=== PATIENT | male | born 1965 | race American Indian/Alaskan Native ===

== ENCOUNTER 2017-04-24 06:00 | Emergency (ER) | payer OTHER ==
[2017-04-24 06:05] VITALS: BP 149/93
--- NOTE | 2017-04-24 08:18 | Emergency Department Report ---
HPI - General Chief Complaint: Medical Clearance Time Seen by Provider: 04/24/17 07:59 - HPI HPI: he is a 52-year-old male with a history of asthma who presents stating is out of these albuterol inhaler and is here for medication refill. Patient denies any cough, shortness of breath, chest pain, fever, nausea, vomiting, abdominal pain, headache ED Past Medical Hx - Past Medical History Hx Hypertension: No (Pt denies but BP consistently >140/90) Hx GERD: Yes Hx of Cancer: Yes (prostate) Hx Arthritis: Yes (KNEES & ankles) Hx Seizures: No Hx Kidney Stones: Yes Hx Asthma: Yes (uses inhaler everyday) Additional medical history: chronic back pain. hernia - Surgical History Past Surgical History?: Yes Additional Surgical History: Brachytherapy for prostate CA. Lithotripsy, left ureteral stent, left knee surgery, hemorrhoid surgery, cardiac catheterization 2006 - Social History Smoking Status: Never Smoker Substance Use Type: Alcohol - Medications Home Medications: Home Medications Medication Instructions Recorded Confirmed Last Taken Type Montelukast Sodium [Singulair] 10 mg PO DAILY 03/13/14 05/13/14 04/23/14 05:00 History Sildenafil Citrate [Viagra] 1 tab PO DAILY PRN 04/17/14 05/13/14 04/21/14 History Tadalafil [Cialis] 1 tab PO DAILY 04/17/14 05/13/14 04/21/14 History Ciprofloxacin HCl [Ciprofloxacin 500 mg PO Q12H #14 tab 05/13/14 Unknown Rx TAB] HYDROcodone/APAP 5-325 [[place] 1 - 2 each PO Q6HR PRN #14 tablet 05/13/14 Unknown Rx 5/325] ALBUTEROL Inhaler [ProAir HFA 2 puff IH QID PRN #1 pump 04/24/17 Unknown Rx Inhaler] ALBUTEROL NEB's [Proventil 0.083% 2.5 mg IH PRN PRN #1 nebu 04/24/17 Unknown Rx NEBS] Fluticasone/Salmeterol [Advair 1 puff IH BID #1 blst.w.dev 04/24/17 Unknown Rx Diskus 500-50 mcg] ED Review of Systems ROS: Stated complaint: MEDICAL CLEARANCE Other details as noted in HPI Constitutional: denies: chills, fever Eyes: denies: eye pain, eye discharge, vision change ENT: denies: ear pain, throat pain Respiratory: denies: cough, shortness of breath, wheezing Cardiovascular: denies: chest pain, palpitations Endocrine: no symptoms reported Gastrointestinal: denies: abdominal pain, nausea, diarrhea Genitourinary: denies: urgency, dysuria Musculoskeletal: denies: back pain, joint swelling, arthralgia Skin: denies: rash, lesions Neurological: denies: headache, weakness, paresthesias Psychiatric: denies: anxiety, depression Hematological/Lymphatic: denies: easy bleeding, easy bruising Physical Exam - Physical Exam Vital Signs: Vital Signs 04/24/17 04/24/17 06:02 06:05 Temperature 97.8 F 97.8 F Pulse Rate 107 H 107 H Respiratory 18 18 Rate Blood Pressure 149/93 149/93 O2 Sat by Pulse 95 95 Oximetry Physical Exam: GENERAL: Alert and oriented x3, no apparent distress, Normal Gait, atraumatic. NOSE: Nose symetrical, Nontender,Nares appeared normal. MOUTH:Mouth is well hydrated and without lesions. Tonsils nonerythematous or swollen, Uvula midline, Tongue not elevated. Mucous membranes are moist. Posterior pharynx clear, no exudate or lesions. Patent airways. NECK: Supple. Non edematous, No lymphadenopathy or thyromegaly. LUNGS: Symetrical with respiration, No wheezing, no rales or crackles, CTAB. HEART: S1, S2 present, regular rate and rhythm without murmur, no rubs, no gallops. Non tender to palpation SKIN: Warm and dry, No lesions, No ulceration or induration present. ED Course Vital Signs 04/24/17 04/24/17 06:02 06:05 Temperature 97.8 F 97.8 F Pulse Rate 107 H 107 H Respiratory 18 18 Rate Blood Pressure 149/93 149/93 O2 Sat by Pulse 95 95 Oximetry ED Medical Decision Making - Medical Decision Making 52-year-old male presents to medication refill ED course: Patient is in no acute respiratory distress Vital signs are normal. Patient is resting comfortably states he is in no respiratory distress The patient states he will follow-up at the [facility] for primary care. Patient states he could not get an appointment at the [facility] sooner which is why he came in here to get his medication. Critical care attestation.: If time is entered above; I have spent that time in minutes in the direct care of this critically ill patient, excluding procedure time. ED Disposition Clinical Impression: Medication refill Disposition: DC- TO HOME OR SELFCARE Is pt being admited?: No Does the pt Need Aspirin: No Condition: Stable Instructions: Asthma (ED) Additional Instructions: Follow-up with a primary care physician at the [facility] Prescriptions: ALBUTEROL Inhaler [ProAir HFA Inhaler] 2 puff IH QID PRN #1 pump PRN Reason: Shortness Of Breath ALBUTEROL NEB's [Proventil 0.083% NEBS] 2.5 mg IH PRN PRN #1 nebu PRN Reason: Wheezing Fluticasone/Salmeterol [Advair Diskus 500-50 mcg] 1 puff IH BID #1 blst.w.dev Referrals: TED EASLEY MD [Primary Care Provider] - 3-5 Days Forms: Work/School Release Form(ED) Time of Disposition: 08:29
== END 2017-04-24 08:45 | disposition home or self-care (01) ==
LOC: ED 06:00
DX: Z76.0 Encounter for issue of repeat prescription (principal); K21.9 Gastro-esophageal reflux disease without esophagitis; C61 Malignant neoplasm of prostate; M19.90 Unspecified osteoarthritis, unspecified site; J45.909 Unspecified asthma, uncomplicated; G89.29 Other chronic pain; Z88.6 Allergy status to analgesic agent; Z88.8 Allergy status to other drugs, medicaments and biological substances
CPT/HCPCS: 99282